=== PATIENT | male | born 1970 | race Caucasian/White ===

== ENCOUNTER 2017-08-30 16:03 | Emergency (ER) | payer BC ==
[2017-08-30 16:15] VITALS: BP 132/79
--- NOTE | 2017-08-30 16:55 | UC ---
Ag Manriquez Gabriel, scribed for Aislinn Fisher MD on 08/30/17 at 1644 . Respiratory Complaint HPI - HPI Summary HPI Summary: This patient is a 46 year old M presenting to [facility] [place] with a chief complaint of cold symptoms that began this morning. The patient rates the pain 0/10 in severity. Patient reports post nasal drip, rhinorrhea, sinus congestion, clogged ears, increased mucus production, diaphoresis, and mild cough. Patient denies fever, chills, myalgia, n/v/d, and SAVAGE. Pt has been taking 4 tablets of Advil every four hours and his last dose was yesterday. Pt is using his inhaler as directed. Hx of allergies but pt states this feels different. Comes today because he commutes and has a difficult time getting to MD visits. - History of Current Complaint Chief Complaint: UCRespiratory Stated Complaint: COUGH Time Seen by Provider: 08/30/17 16:34 Hx Obtained From: Patient Onset/Duration: Lasting Days - 3, Still Present Timing: Constant Severity Initially: Mild Severity Currently: Mild Pain Intensity: 0 Pain Scale Used: 0-10 Numeric Character: Cough: Nonproductive Associated Signs And Symptoms: Positive: Negative - fever, chills, myalgia, n/v/ d, and SAVAGE., Nasal Congestion, Sinus Discomfort - Risk Factors Pulmonary Embolism Risk Factors: Negative Cardiac Risk Factors: Elevated Lipids, Family History Pseudomonas Risk Factors: Negative Tuberculosis Risk Factors: Negative - Allergies/Home Medications Allergies/Adverse Reactions: Allergies Allergy/AdvReac Type Severity Reaction Status Date / Time atorvastatin [From Lipitor] Allergy Flushing Verified 08/30/17 16:15 Home Medications: Home Medications Rosuvastatin Calcium [Crestor] 5 mg PO 08/30/17 [History] PMH/Surg Hx/FS Hx/Imm Hx Cardiovascular History: Other Other Cardiovascular History: HLD Respiratory History: Asthma - Surgical History Surgical History: None - Family History Known Family History: Positive: Cardiac Disease - brother [place] at 29 - Social History Occupation: Employed Full-time Lives: With Family Alcohol Use: Occasionally Substance Use Type: None Smoking Status (MU): Never Smoked Tobacco Review of Systems Constitutional: Other - diaphoresis Skin: Negative Eyes: Negative ENT: Ear Ache, Nasal Discharge, Sinus Congestion, Sinus Pain/Tenderness, Other - post nasal drip Respiratory: Cough Cardiovascular: Negative Gastrointestinal: Negative Genitourinary: Negative Motor: Negative Neurovascular: Negative Musculoskeletal: Negative Neurological: Negative Psychological: Negative Is Patient Immunocompromised?: No All Other Systems Reviewed And Are Negative: Yes Physical Exam Triage Information Reviewed: Yes Appearance: Well-Appearing, Obese Vital Signs: Initial Vital Signs Temp 98.3 F 08/30/17 16:10 Pulse 78 08/30/17 16:10 Resp 18 08/30/17 16:10 BP 132/79 08/30/17 16:10 Pulse Ox 99 08/30/17 16:10 Eyes: Positive: Conjunctiva Clear ENT: Positive: Pharyngeal erythema - post nasal drainage and erythema. Negative : Sinus tenderness Neck: Positive: Supple, Nontender, No Lymphadenopathy Respiratory: Positive: Lungs clear, Normal breath sounds Cardiovascular: Positive: RRR, No Murmur Musculoskeletal Exam: Normal Neurological: Positive: Alert, Muscle Tone Normal Psychological Exam: Normal Skin Exam: Normal UC Diagnostic Evaluation - Laboratory O2 Sat by Pulse Oximetry: 99 Respiratory Course/Dx - Course Course Of Treatment: Continue present regime, consider antihistamine. Given concern about sinusitis, augmentin on hold. - Differential Dx/Diagnosis Provider Diagnoses: allergies, asthma. Discharge - Sign-Out/Discharge Documenting (check all that apply): Discharge/Admit/Transfer - Discharge Plan Condition: Stable Disposition: HOME Prescriptions: Amoxicillin/Clavulanate TAB* [Augmentin TAB 875*] 875 mg PO BID #20 tab Patient Education Materials: Allergies (ED) Referrals: Norah Miller MD [Primary Care Provider] - Additional Instructions: Your symptoms are most consistent with allergies or a viral illness. Continue use of nasonex and Pulmicort, but consider adding an over the counter antihistamine such as fexofenadine 180mg daily OR cetirazine 10mg once daily. You could also take benadryl at night. You have a prescription on hold to use should this progress into a sinus infection. Symptoms to watch for are fever, facial pain or headache, worsening fatigue, productive cough, shortness of breath. Chances are that you will not need to take the course of augmentin. You can use ibuprofen for headache as needed. - Billing Disposition and Condition Condition: STABLE Disposition: HOME The documentation as recorded by the Ag sims Gabriel accurately reflects the service I personally performed and the decisions made by , Aislinn Fisher MD.
== END 2017-08-30 17:00 | disposition home or self-care (01) ==
LOC: UCEAST 16:03
DX: J45.909 Unspecified asthma, uncomplicated (principal); E78.5 Hyperlipidemia, unspecified; Z88.8 Allergy status to other drugs, medicaments and biological substances
CPT/HCPCS: 99212; G0463

== ENCOUNTER 2017-12-24 09:32 | Emergency (ER) | payer BC ==
[2017-12-24 09:46] VITALS: BP 154/77
--- NOTE | 2017-12-24 09:52 | UC ---
Respiratory Complaint HPI - HPI Summary HPI Summary: A 47 y/o M presents to [facility] [place] with c/o ongoing cough for past week, which has been intermittently improving but then worsening. He states having general cold sx last week but those have resolved except the cough. Pt states he's been unable to sleep due to the cough, the cough is worst at night. Associated sx: mild dysphagia, mild sore throat, mild wheezing. Denies fever. Aggravating factors: lying flat. Pt took Mucinex resulting in a productive cough (clear phlegm). Non- smoker. Pt takes medication for his allergies to his pets. - History of Current Complaint Stated Complaint: CONGESTED,COUGH Hx Obtained From: Patient Onset/Duration: Lasting Weeks, Still Present Severity Initially: Mild Severity Currently: Mild Pain Intensity: 0 Pain Scale Used: 0-10 Numeric Aggravating Factors: Recumbent Position Associated Signs And Symptoms: Positive: Wheezing - mild, URI - resolved - Allergies/Home Medications Allergies/Adverse Reactions: Allergies Allergy/AdvReac Type Severity Reaction Status Date / Time atorvastatin [From Lipitor] Allergy Intermediate Flushing Verified 12/24/17 09: 46 PMH/Surg Hx/FS Hx/Imm Hx Previously Healthy: Yes Other Cardiovascular History: neg: HTN Respiratory History: Asthma - Surgical History Surgical History: None - Family History Known Family History: Positive: Cardiac Disease - brother [place] at 29 - Social History Occupation: Unemployed Lives: With Family Alcohol Use: Daily Substance Use Type: None Smoking Status (MU): Never Smoked Tobacco Review of Systems Constitutional: Other - neg: fever ENT: Sore Throat - mild, Other - mild dysphagia Respiratory: Cough, Other - mild wheezing All Other Systems Reviewed And Are Negative: Yes Physical Exam - Summary Physical Exam Summary: General: well-appearing, no pain distress Skin: warm, color reflects adequate perfusion, dry Head: normal Eyes: EOMI, ANU ENT: positive rhinorrhea, posterior pharynx shows positive erythema Neck: supple, nontender Respiratory: On deep expiration, there are traces of rhonchi in bilateral bases. Cardiovascular: RRR Abdomen: soft, nontender Bowel: present Musculoskeletal: normal, strength/ROM intact Neurological: sensory/motor intact, A&O x3 Psychological: affect/mood appropriate Triage Information Reviewed: Yes Vital Signs: Initial Vital Signs Temp 97.9 F 12/24/17 09:42 Pulse 70 12/24/17 09:42 Resp 20 12/24/17 09:42 BP 154/77 12/24/17 09:42 Pulse Ox 98 12/24/17 09:42 Vital Signs Reviewed: Yes UC Diagnostic Evaluation - Laboratory O2 Sat by Pulse Oximetry: 98 Respiratory Course/Dx - Course Course Of Treatment: BP noted and advised to follow up with PCP. Medications reviewed. Allergies noted. DISCUSSED VIRAL VERSES BACTERIAL INFECTION AND THE ROLE OF ANTIBIOTICS. THE PATIENT WISHES TO BE ON ANTIBIOTICS AT THIS TIME. - Differential Dx/Diagnosis Provider Diagnoses: BRONCHITIS. COUGH Discharge - Sign-Out/Discharge Documenting (check all that apply): Patient Departure All imaging exams completed and their final reports reviewed: No Studies - Discharge Plan Condition: Stable Disposition: HOME Prescriptions: Azithromyxin FLORENCIO (NF) [Z-Florencio (Zithromax) 250 mg tabs #6] 2 tab PO .TODAY, THEN 1 DAILY #6 tab Benzonatate CAP* [Tessalon 100 MG CAP*] 100 mg PO TID #15 cap Codeine Phosphate/Guaifenesin [Codeine-Guaifen 10-100 mg/5 ml] 10 ml PO Q4H PRN #120 liquid MDD 60ML PRN Reason: Cough Patient Education Materials: Acute Bronchitis (ED), Acute Cough (ED) Referrals: Norah Miller MD [Primary Care Provider] - Additional Instructions: FOLLOW UP WITH YOUR DOCTOR IF NOT COMPLETELY IMPROVED. GET RECHECKED FOR ANY WORSENING OF YOUR CONDITION OR QUESTIONS OR CONCERNS. Your blood pressure was elevated during todays visit; please follow up with your primary care provider within a week for further evaluation. - Billing Disposition and Condition Condition: STABLE Disposition: Home - Attestation Statements Document Initiated by Sawyeribkenna: Yes Documenting Scribe: Marline Rosales Provider For Whom Evy is Documenting (Include Credential): Dr. Braxton New MD Scribe Attestation: Marline Manriquez scribed for Dr. Braxton New MD on 12/24/17 at 1009. Scribe Documentation Reviewed: Yes Provider Attestation: The documentation as recorded by the Marline sims accurately reflects the service I personally performed and the decisions made by , Dr. Bratxon New MD
== END 2017-12-24 10:12 | disposition home or self-care (01) ==
LOC: UCEAST 09:32
DX: J40 Bronchitis, not specified as acute or chronic (principal); R05 Cough; J45.909 Unspecified asthma, uncomplicated; Z88.8 Allergy status to other drugs, medicaments and biological substances
CPT/HCPCS: 99212; G0463